=== PATIENT | female | born 1940 | race Caucasian/White ===

== ENCOUNTER 2019-03-23 12:54 | Outpatient (CLI) | payer MEDICARE, OTHER, SELFPAY ==
[2019-03-23 14:07] LABS: ALT 20 U/L (12-78); AST 19 U/L (15-37); Albumin 3.8 g/dL (3.4-5.0); Alkaline Phosphatase 61 U/L (46-116); Anion Gap 8.4 mmol/L (3-11); BUN 12 mg/dL (7-18); CO2 29.6 mmol/L (21.0-32.0); CREATININE 0.98 mg/dL (0.55-1.02); Calcium 9.6 mg/dL (8.5-10.1); Chloride 103 mmol/L (98-107); Estimated GFR 55.18 (mL/min/1.73m2); Glucose 92 mg/dL (70-100); Potassium 3.5 mmol/L (3.5-5.1); Sodium 141 mmol/L (136-145); Total Protein 7.5 g/dL (6.4-8.2)
== END 2019-03-23 13:14 ==
PROVIDERS: PCP Family Medicine; Visit Provider Family Medicine
DX: I10 Essential (primary) hypertension (principal)
CPT/HCPCS: 36415; 80053

== ENCOUNTER 2020-07-11 01:30 | Outpatient (CLI) | payer MEDICARE, OTHER, SELFPAY ==
[2020-07-11 10:13] LABS: ALT 18 U/L (14-59); AST 16 U/L (15-37); Albumin 3.8 g/dL (3.4-5.0); Alkaline Phosphatase 63 U/L (46-116); Anion Gap 8.2 mmol/L (3-11); BUN 8 mg/dL (7-18); Bilirubin, Total 0.9 mg/dL (0.2-1.0); CO2 31.8 mmol/L (21.0-32.0); CREATININE 0.57 mg/dL (0.55-1.02); Calcium 9.8 mg/dL (8.5-10.1); Chloride 97 mmol/L (98-107); Glucose 92 mg/dL (74-106); Potassium 3.8 mmol/L (3.5-5.1); Sodium 137 mmol/L (136-145); Total Protein 7.7 g/dL (6.4-8.2)
== END 2020-07-11 01:50 ==
PROVIDERS: PCP Family Medicine; Visit Provider Family Medicine
DX: I10 Essential (primary) hypertension (principal)
CPT/HCPCS: 36415; 80053

== ENCOUNTER 2022-04-23 01:09 | Outpatient (CLI) | payer MEDICARE, OTHER, SELFPAY | END 2022-04-23 01:10 | disposition home or self-care (01) | LOC: LOS 01:09 | PROVIDERS: PCP Family Medicine; Visit Provider Family Medicine ==

== ENCOUNTER 2022-07-05 02:41 | Outpatient (CLI) | payer MEDICARE, OTHER, SELFPAY ==
[2022-07-05 12:55] LABS: ALT 14 U/L (14-59); AST 28 U/L (15-37); Albumin 3.8 g/dL (3.4-5.0); Alkaline Phosphatase 64 U/L (46-116); Anion Gap 10.4 mmol/L (3-11); BUN 11 mg/dL (7-18); Bilirubin, Total 1.1 mg/dL (0.2-1.0); CO2 26.6 mmol/L (21.0-32.0); CREATININE 0.6 mg/dL (0.55-1.02); Calcium 9.2 mg/dL (8.5-10.1); Chloride 96 mmol/L (98-107); Glucose 81 mg/dL (74-106); Potassium 4.2 mmol/L (3.5-5.1); Sodium 133 mmol/L (136-145); Total Protein 7.9 g/dL (6.4-8.2)
== END 2022-07-05 02:42 | disposition home or self-care (01) ==
LOC: LOS 02:41
PROVIDERS: PCP Family Medicine; Visit Provider Family Medicine
DX: I10 Essential (primary) hypertension (principal)
CPT/HCPCS: 36415; 80053

== ENCOUNTER 2023-08-16 01:43 | Outpatient (CLI) | payer MEDICARE, SELFPAY ==
[2023-08-16 12:27] LABS: ALT 17 U/L (14-59); AST 18 U/L (15-37); Albumin 3.4 g/dL (3.4-5.0); Alkaline Phosphatase 63 U/L (46-116); Anion Gap 6.9 mmol/L (3-11); BUN 11 mg/dL (7-18); Bilirubin, Total 0.9 mg/dL (0.2-1.0); CO2 27.1 mmol/L (21.0-32.0); CREATININE 0.8 mg/dL (0.55-1.02); Calcium 9.9 mg/dL (8.5-10.1); Chloride 100 mmol/L (98-107); Estimated GFR 73.98 (mL/min/1.73m2); Glucose 98 mg/dL (74-106); Potassium 4.2 mmol/L (3.5-5.1); Sodium 134 mmol/L (136-145); Total Protein 7.4 g/dL (6.4-8.2)
== END 2023-08-16 01:44 | disposition home or self-care (01) ==
LOC: LOS 01:43
PROVIDERS: PCP Family Medicine; Visit Provider Family Medicine
DX: I10 Essential (primary) hypertension (principal)
CPT/HCPCS: 36415; 80053

== ENCOUNTER 2024-02-07 11:14 | Outpatient (CLI) | payer MEDICARE, SELFPAY ==
[2024-02-07 12:40] LABS: Anion Gap 10.5 mmol/L (3-11); BUN 10 mg/dL (7-18); CO2 29.5 mmol/L (21.0-32.0); CREATININE 0.9 mg/dL (0.55-1.02); Calcium 9.7 mg/dL (8.5-10.1); Chloride 104 mmol/L (98-107); Estimated GFR 64.23 (mL/min/1.73m2); Glucose 113 mg/dL (74-106); Potassium 3.8 mmol/L (3.5-5.1); Sodium 144 mmol/L (136-145)
== END 2024-02-07 11:15 | disposition home or self-care (01) ==
LOC: LOS 11:14
PROVIDERS: PCP Family Medicine; Visit Provider Family Medicine
DX: I10 Essential (primary) hypertension (principal)
CPT/HCPCS: 36415; 80048

== ENCOUNTER → 2024-03-01 03:42 | Outpatient (CLI) | payer MEDICARE, SELFPAY ==
--- NOTE | 2024-03-01 12:30 | DI.US_ITS ---
APPROVED REPORT EXAM: Comprehensive 2D, Doppler, and color-flow Echocardiogram Patient Location: Out-Patient Sushi Chef: Swati Asencio RDCS (AE) Indications: Edema Other Information Study Quality: Adequate. Technically limited study due to body habitus. Conclusion Normal left ventricular wall thickness and chamber size. EF is 55-60%. Wall motion is normal Normal right ventricular size and function Both atria are normal in size Mildly sclerotic trileaflet aortic valve without stenosis or regurgitation. There are no additional valvular abnormalities Wall motion Left Ventricle The left ventricle is normal size. The left ventricular systolic function is normal. The left ventric ular ejection fraction is within the normal range. There is normal left ventricular wall thickness. T here is normal LV segmental wall motion. There is no ventricular septal defect visualized. LVEF is 55 -60%. Right Ventricle The right ventricle is normal size. The right ventricular systolic function is normal. Atria The left atrium size is normal. The right atrium size is normal. The interatrial septum is intact wit h no evidence for an atrial septal defect. Aortic Valve The Aortic valve is mildly sclerotic. Aortic valve is trileaflet. There is no aortic valvular stenosi s. No aortic regurgitation is present. Mitral Valve The mitral valve is normal in structure. No evidence of mitral valve stenosis. Trace to mild mitral r egurgitation. Tricuspid Valve The tricuspid valve is normal in structure. There is no tricuspid valve stenosis. Trace tricuspid reg urgitation. Unable to assess PA pressure. Pulmonic Valve The pulmonary valve is normal in structure. There is no pulmonic valvular stenosis. There is no pulmo hanna valvular regurgitation. Great Vessels The aortic root is normal in size. The ascending aorta is normal in size. Aortic arch is not well vis ualized. IVC is normal in size and collapses >50% with inspiration. Pericardium There is no pericardial effusion. 2D Dimensions IVSD d PLAX 0.77 cm F: 0.6-1.0 Ao Root d 3.18 cm F: 2.7 - 3.3 LVPW d PLAX 0.79 cm F: 0.6 - 1.0 Ao Asc Diam d 3.11 cm F: 2.3 - 3.1 LVID d PLAX 3.76 cm F: 3.8 - 5.2 LVDs 2.68 cm F: 2.2 - 3.5 LV EF Teichholz 55.9 % FS 28.58 % LV EDV (Teich) 60.3 mL LV ESV (Teich) 26.6 mL M-Mode TAPSE 1.92 cm (M/F) >1.7 Auto EF LV EDV A4C 63.9 mL LV EDV A2C 66.3 mL LV EDV BP 66.6 mL LV ESV A4C 28.8 mL LV ESV A2C 30.0 mL LV ESV BP 30.6 mL LVEF(%) A4C 54.9 % LVEF(%) A2C 54.7 % LVEF(%) BP 54.0 % LV SV A4C 35.1 ml LV SV A2C 36.3 ml LV SV BP 36.0 ml LV CO A4C 3.3 L/min LV CO A2C 3.4 L/min LV CO BP 3.4 L/min HR A4C 94.00 BPM HR A2C 94.25 BPM LV EDV Index (BP) LA Volume LA Length A4C 4.5 cm LA Length A2C 4.7 cm LA Area A4C s 13.47 cm2 LA Area A2C s 14.64 cm2 LA Vol A4C A-L 33.94 mL LA Vol A2C A-L 38.44 mL LA Vol Biplane A-L 36.9 mL LA Vol/BSA A4C A-L LA Vol/BSA A2C A-L LA Vol/BSA BP A-L 27.1 mL/m2 LA Vol A4C MOD 31.8 mL LA Vol A2C MOD 35.7 mL LA Vol BP MOD 34.0 mL RA Volume RA Area A4C 11.3 cm2 RA ESV A4C (A-L) 28.3mL RA Vol/BSA A4C A-L RA Length A4C 3.8 cm RA ESV A4C (MOD) 27.3mL LV Diastology MV E' medial 0.080 (>0.07 m/s) MV E Vmax 1.03 (0.4-1.3 m/s) MV E/E' MED 12.88 (<14) MV A Vmax 1.10 (0.4-1.3 m/s) MV E' lateral 0.103 (>0.1 m/s) E/A Ratio 0.9 MV E/E' LAT 10.08 (<14) MV E' Average 0.091 m/s MV E/E'(average) 11.31 Aortic Valve AoV Vmax 1.36 m/s LVOT Vmax 1.02 m/s AoV Peak Grad 7.4 mmHg LVOT Peak Grad 4.1 mmHg AoV Area (Vmax) 2.17 cm2 LVOT VTI 0.217 m AoV VTI 0.291 m LVOT Mean Grad 2.3 mmHg AoV Mean Sharath. 0.92 m/s LVOT SV 62.96 mL AoV Mean Grad 3.9 mmHg LVOT Diam s 1.90 cm AoV Area (VTI) 2.16 cm2 Velocity Ratio 0.75 Mitral Valve MV DT 160 (160-240 msec) MV Vmax TIPS 1.13 m/s MV Mean Grad 2.9 (<2mmHg) MV VTI 0.220 m Pulmonary Valve PV Vmax 1.17 (0.5-1.5 m/s) RVOT Vmax 1.06 m/s PV Peak Grad 5.5 mmHg RVOT Peak Gr. 4.5 mmHg PV Mean Sharath 0.84 m/s RVOT VTI 0.205 m PV Mean Grad 3.2 mmHg RVOT Mean Gr. 2.4 mmHg Tricuspid Valve TV S' 0.18 m/s
== END ==
PROVIDERS: PCP Family Medicine; Visit Provider Family Medicine
DX: R60.9 Edema, unspecified (principal)
CPT/HCPCS: 93306

== ENCOUNTER 2024-09-20 11:21 | Outpatient (CLI) | payer MEDICARE, SELFPAY ==
--- NOTE | 2024-09-20 11:15 | RT.EKG_ITS ---
APPROVED REPORT Exam: Resting ECG Reason for Exam: Tachycardia Patient Location: O HR:105 bpm ECG Measurements Heart Rate 105 AXIS DC 167 P 65 QRSd 78 QRS -20 QT 327 T 52 QTc 433 Conclusion Sinus tachycardia...rate> 99 Borderline left axis deviation...QRS axis (-15,-29)
== END 2024-09-20 11:22 | disposition home or self-care (01) ==
LOC: DI.CM 11:21
PROVIDERS: PCP Family Medicine; Visit Provider Family Medicine
DX: R00.0 Tachycardia, unspecified (principal)
CPT/HCPCS: 93010

== ENCOUNTER 2025-03-28 01:58 | Outpatient (CLI) | payer MEDICARE, SELFPAY ==
[2025-03-28 12:27] LABS: HCT 35.4 % (36.0-46.0); HGB 12.2 g/dL (11.2-15.7); MCH 36.9 pg (27.0-33.0); MCHC 34.5 % (32.0-36.0); MPV 10.1 fL (8.0-11.0); RBC 3.31 10^6/uL (3.93-5.22); RDW 12.9 % (11.7-14.6); RDW-SD 51.1 fL; WBC 5.27 10^3/uL (4.4-10.8)
[2025-03-28 12:50] LABS: ALT 19 U/L (14-59); AST 29 U/L (15-37); Albumin 3.7 g/dL (3.4-5.0); Alkaline Phosphatase 68 U/L (46-116); Anion Gap 9.5 mmol/L (3-11); BUN 10 mg/dL (7-18); CO2 28.5 mmol/L (21.0-32.0); CREATININE 0.7 mg/dL (0.55-1.02); Calcium 9.9 mg/dL (8.5-10.1); Chloride 102 mmol/L (98-107); Glucose 82 mg/dL (74-106); Potassium 4.1 mmol/L (3.5-5.1); Sodium 140 mmol/L (136-145); TSH (W/Ref FT4) 1.86 uIU/mL (0.36-3.74)
[2025-03-28 12:52] LABS: MCV 107 fL (80-95)
[2025-03-28 12:53] LABS: Platelet Count 252 10^3/uL (130-400)
[2025-03-28 19:38] LABS: Lab Add On Test DONE
[2025-03-28 20:12] LABS: Vitamin B12 213 pg/mL (193-986)
== END 2025-03-28 01:59 | disposition home or self-care (01) ==
LOC: LOS 01:58
PROVIDERS: PCP Family Medicine; Visit Provider Family Medicine
DX: R00.0 Tachycardia, unspecified (principal); E03.9 Hypothyroidism, unspecified; I10 Essential (primary) hypertension; R71.8 Other abnormality of red blood cells
CPT/HCPCS: 36415; 80053; 85027; 82607; 84443

== ENCOUNTER 2025-08-26 02:35 | Outpatient (CLI) | payer MEDICARE, SELFPAY ==
--- NOTE | 2025-08-26 10:45 | DI.US_ITS ---
Exam(s) US BREAST RT COMPLETE MAMMO DIAGNOSTIC BI EXAM: MAMMO DIAGNOSTIC BI and U/S breast RT complete CLINICAL HISTORY: breast lump rt breast, N63.15. TECHNIQUE: Craniocaudal and mediolateral oblique Full Field Digital Mammography views with Computer Aided Diagnosis followed by Tomosynthesis and right breast ultrasound. A complete right breast ultrasound was performed with evaluation of all 4 quadrants, the retroareolar region and the right axilla. COMPARISON: Comparison is made with prior examinations. FINDINGS: Mammography/Tomosynthesis: Masses/Architectural Distortion: There is a new 2 cm mass in the upper outer quadrant of the right breast. There are so seated microcalcifications. There are biopsy clip seen in both breasts. There are not associated with the new mass. Microcalcifictions: No suspicious pleomorphic-type are seen. There are benign type calcifications seen in both breasts. Skin Thickening/Nipple Retraction: None. Complete right breast US: Echotexture: Normal appearance of the glandular tissue. Shadowing: No suspicious foci. Cyst: None. Solid lesions: There is a 1.8 x 1.4 cm hypoechoic spiculated mass at the 9 to 10 o'clock position of the right breast 3 cm from the nipple. This corresponds to the mammographic abnormality. There are echogenic foci seen internally consistent with calcification. There is an area of decreased echogenicity at the luna o'clock position of the right breast 2 cm from the nipple which appears represent fibroglandular tissue. There are sonographically benign type lymph nodes in the right axilla. The largest measures 2 cm. Ductal dilation: None. IMPRESSION: 1. New 1.8 x 1.4 cm mass in the right breast. 2. The findings are concerning for neoplasm. Biopsy is recommended. 3. The findings were discussed with the patient on the date of the examination. BI-RADS Category 5 - Highly Suggestive of Malignancy: Biopsy recommended Breast Density - Category C - The breast are heterogeneously dense, which may obscure small masses. Breast density Category C or D implies that the patient has dense breast tissue. Dense breast tissue can make it harder to find cancer on a mammogram. Dense breast tissue is also associated with an increased risk of breast cancer. This information about the result of the mammogram report was provided to the patient to raise their awareness. Use this report when you speak with the patient about their risks for breast cancer, which includes their family history. At that time, you may recommend additional screening tests (Ultrasound or MRI) as these tests may add significant information. A negative radiographic report should not delay biopsy if a dominant or clinically suspicious mass is present. Up to ten percent of cancers are not identified on mammography. A negative report may reinforce clinical impression. Adenosis and dense breasts may obscure an underlying neoplasm. False positive reports average 6 to 10%. Patient will receive a letter notifying them of these results.
== END 2025-08-26 02:55 ==
LOC: DI 02:35
PROVIDERS: PCP Family Medicine; Visit Provider Nurse Practitioner Family
DX: Z12.31 Encounter for screening mammogram for malignant neoplasm of breast (principal); N63.15 Unspecified lump in the right breast, overlapping quadrants; N63.11 Unspecified lump in the right breast, upper outer quadrant
CPT/HCPCS: 76642; 77062; 77066; G0279

== ENCOUNTER 2025-08-29 09:16 | Outpatient (CLI) | payer MEDICARE, SELFPAY ==
--- NOTE | 2025-08-29 10:50 | DI.MAMMO_ITS ---
Exam(s) MAMMO DIAGNOSTIC UNI EXAM: MAMMO DIAGNOSTIC UNI CLINICAL HISTORY: post biopsy mammogram, rt breast mass, N63.10. TECHNIQUE: Craniocaudal and mediolateral Full Field Digital Mammography views of the right breast with Computer Aided Diagnosis were obtained post-biopsy to evaluate the position of the biopsy marker. COMPARISON: No exams were available for comparison FINDINGS: Mammography/Tomosynthesis: 85-year old female. Post Ultrasound-guided core needle biopsy of the right breast.There is again seen a mass in the upper outer quadrant of the right breast. A biopsy marker is not identified in the right breast. There is no marker is located at the expected site of the recent biopsy. No evidence of immediate complication such as hematoma, skin thickening or pneumothorax. IMPRESSION: 1. There is no biopsy marker identified in the right breast at the expected site of the recent biopsy. 2. No acute post-procedural complications. 3. Recommend routine follow-up per standard practice and correlation with pathology results. 4. The findings were discussed with Dr. Taylor on 08/29/2025. BI-RADS Category 0 - Incomplete: Need additional imaging evaluation Breast Density - Category C - The breast are heterogeneously dense, which may obscure small masses. Breast density Category C or D implies that the patient has dense breast tissue. Dense breast tissue can make it harder to find cancer on a mammogram. Dense breast tissue is also associated with an increased risk of breast cancer. This information about the result of the mammogram report was provided to the patient to raise their awareness. Use this report when you speak with the patient about their risks for breast cancer, which includes their family history. At that time, you may recommend additional screening tests (Ultrasound or MRI) as these tests may add significant information. A negative radiographic report should not delay biopsy if a dominant or clinically suspicious mass is present. Up to ten percent of cancers are not identified on mammography. A negative report may reinforce clinical impression. Adenosis and dense breasts may obscure an underlying neoplasm. False positive reports average 6 to 10%. Patient will receive a letter notifying them of these results.
== END 2025-08-29 09:36 ==
LOC: DI 09:17
PROVIDERS: PCP Family Medicine; Visit Provider Surgery
DX: C50.811 Malignant neoplasm of overlapping sites of right female breast (principal)
CPT/HCPCS: 19083; 76642; 77061; 77065; G0279

== ENCOUNTER 2025-08-29 09:35 | Outpatient (REF) | payer MEDICARE, SELFPAY ==
--- NOTE | 2025-08-29 09:40 | BREAST_PTH ---
PATIENT: Nicole Renee LOC: [facility] U#:[id number] AGE/SX: 85/F ROOM: RE08/29/[address]: Wendy Taylor MD : 1940 BED: DIS: 08/29/2025 SPEC #: [id number] RECD: 08/29/25 12:37 STATUS: RAMEZ REQ #: [id number] WILIAN: 08/29/25 09:[address]: Wendy Taylor DEPT: Surgical Specimen RECD BY: Brenda Will ENTERED: 08/29/25 12:38 SP TYPE: Breast OTHR DR: Nicole Hendrix MD, DC Tissues: 1 - BREAST BX NEEDLE Procedures: GROSS AND MICRO LEVEL 4 [id number] IPEX ESTROGEN/PROGESTERONE RECEPTOR IPEX STAIN Comments: [id number]
== END 2025-08-29 09:36 | disposition home or self-care (01) ==
LOC: LBN 09:35
PROVIDERS: PCP Family Medicine; Referring Provider Surgery; Visit Provider Surgery
DX: C50.911 Malignant neoplasm of unspecified site of right female breast (principal)
CPT/HCPCS: 88305; 88360

== ENCOUNTER → 2025-09-13 14:31 | Outpatient (BNVA) | payer MEDICARE, SELFPAY | PROVIDERS: PCP Family Medicine; Referring Provider Family Medicine; Visit Provider Surgery | DX: C50.211 Malignant neoplasm of upper-inner quadrant of right female breast (principal); R59.0 Localized enlarged lymph nodes | CPT/HCPCS: 10005; 19283 ==

== ENCOUNTER 2025-09-13 14:39 | Outpatient (REF) | payer MEDICARE, SELFPAY ==
--- NOTE | 2025-09-13 15:25 | PAPNONF_PTH ---
PATIENT: Nicole Renee LOC: [facility] U#:[id number] AGE/SX: 85/F ROOM: RE09/13/[address]: Wendy Taylor MD : 1940 BED: DIS: 09/13/2025 SPEC #: [id number] RECD: 09/13/25 16:20 STATUS: RAMEZ REKe #: [id number] WILIAN: 09/13/25 15:[address]: Wendy Taylor DEPT: [facility] Cytology RECD BY: Brenda Will ENTERED: 09/13/25 16:21 SP TYPE: PAPALESSIAF ANALI DR: Nicole Hendrix MD, DC Tissues: 1 - BODY FLUID CYTO-FINE NEEDLE ASPIRATE-[facility] Procedures: BODY FLUID CYTO-FINE NEEDLE ASPIRATE-[facility] Comments: [id number] (REFRIGERATED)
== END 2025-09-13 14:40 | disposition home or self-care (01) ==
LOC: LBN 14:39
PROVIDERS: PCP Family Medicine; Visit Provider Surgery
DX: C50.911 Malignant neoplasm of unspecified site of right female breast (principal); R59.0 Localized enlarged lymph nodes
CPT/HCPCS: 88104

== ENCOUNTER → 2025-10-02 01:12 | Outpatient (CLI) | payer MEDICARE, SELFPAY ==
--- NOTE | 2025-10-02 06:30 | DI.NM_ITS ---
Exam(s) NM BONE SCAN WHOLE BODY GRP EXAM: NM BONE SCAN WHOLE BODY GRP CLINICAL HISTORY: rt breast ca, eval for metastasis. TECHNIQUE: Injected Dose: 25 mCi Tc-99m MDP Delayed Images: 2-3 hours. COMPARISON: CR FACIAL BONES LIMITED from 11/10/[address] CHEST/ABD/PEL W from 10/02/2025 FINDINGS: Symmetric axial uptake. Bilateral renal excretion is identified. No focal area of intense suspicious uptake is seen. Increased activity in the cerebral spine. There is scoliosis at the upper thoracic spine. There is some increased activity at the right sternoclavicular joint. Degenerative changes with spurring is noted on a the CT examination. IMPRESSION: 1. No definite evidence of metastatic disease. 2. There is generalized increased activity in the cervical spine. Is could be secondary to degenerative changes. Plain films are recommended for further evaluation. DATA REPOSITORY:
--- NOTE | 2025-10-02 06:30 | DI.CT_ITS ---
Exam(s) CT CHEST/ABD/PEL W EXAM: CT CHEST/ABD/PEL W CLINICAL HISTORY: RT BREAST CA,EVALUATE FOR METASTASIS. TECHNIQUE: Imaging Protocol: Axial computed tomography images with coronal and sagittal reformatted images were created and reviewed. Computer aided detection (CAD) was utilized. CONTRAST MATERIAL: Intravenous: Omnipaque 350 Contrast volume:73 ml Oral: yes COMPARISON: No exams were available for comparison FINDINGS: CHEST: Pulmonary parenchyma: No consolidation. No dominant measurable mass. Tracheobronchial tree: No bronchiectasis. No mucous plugging.No bronchial wall thickening. Pleura: No effusion or pneumothorax. Mediastinum: Within normal limits. Pulmonary arteries: No visible emboli. Cardiovascular: Heart size is normal. No coronary artery calcifications are present. No pericardial effusion. Thoracic aorta non-dilated. Bones: Mild scoliosis. No lytic or blastic lesions. No compression fractures. Bones appear osteoporotic. Soft tissues: Mass in the right breast, consistent with patient's known malignancy. No axillary lymph nodes are identified. ABDOMEN and PELVIS: Liver: Normal density. No suspicious mass. Gallbladder and biliary tract: No evidence of stones or wall thickening. No biliary dilatation. Pancreas: Normal density, no abnormal calcifications or inflammatory process. Spleen: Normal. Kidneys: Normal size, contour and axis. No radiodense stones. No obstructive uropathy. No suspicious masses seen. Adrenal glands: No masses seen. Aorta: Abdominal portion non-dilated. Lymph nodes: Within normal limits. Soft tissues: Unremarkable. Bladder: Unremarkable. Bowel: Diverticulosis of the descending and sigmoid colon. Normal quantity of stool. Appendix normal. No obstruction or bowel wall thickening. Peritoneal cavity: No ascites. No focal collection. No mesenteric inflammatory response. No free air. Bones: No lytic or blastic lesions. Bones appear osteoporotic. Reproductive organs: Unremarkable for age. IMPRESSION: No evidence of metastatic disease in the chest, abdomen or pelvis. Right breast mass. RADIATION DOSE DELIVERED: 399.94mGy.cm Total DLP DATA REPOSITORY: All CT scans at this facility are submitted to the National Radiology Data Registry (NRDR) Dose Index Registry (DIR) with the [employer] (A[employer]). RADIATION OPTIMIZATION: All CT scans at this facility use at least one of these dose optimization techniques: automated exposure control; mA and/or kV adjustment per patient size (includes targeted exams where dose is matched to clinical indication); or iterative reconstruction.
[2025-10-02] MEDS: Barium Sulfate 2% W/V-Creamy Vanilla Smoothie 450 ML BTL PO (07:14)
[2025-10-02] MEDS: Barium Sulfate 2% W/V-Berry Smoothie 450 ML BTL PO (07:14)
[2025-10-02] MEDS: Omnipaque 350 MG/ML 100 ML BTL IJ (09:39)
[2025-10-02] MEDS: Normal Saline - Diluent 50 ML VIAL IJ (09:39)
[2025-10-02] MEDS: Normal Saline Flush 10 ML SYR IVP (09:40)
== END ==
PROVIDERS: PCP Family Medicine; Visit Provider Surgery
DX: C50.911 Malignant neoplasm of unspecified site of right female breast (principal); C50.919 Malignant neoplasm of unspecified site of unspecified female breast; Z17.421 Hormone receptor negative with human epidermal growth factor receptor 2 negative status; R59.0 Localized enlarged lymph nodes
CPT/HCPCS: 74177; 78306; 71260; 82565; J3490

== ENCOUNTER 2025-11-08 13:15 | Outpatient (CLI) | payer MEDICARE, SELFPAY ==
[2025-11-08 11:59] LABS: Abs Immature Grans 0.03 10^3/uL (0.0-0.06); HCT 34.8 % (36.0-46.0); HGB 12.0 g/dL (11.2-15.7); Immature Grans % 0.4 %; MCH 33.4 pg (27.0-33.0); MCHC 34.5 % (32.0-36.0); MCV 97 fL (80-95); MPV 9.3 fL (8.0-11.0); Platelet Count 262 10^3/uL (130-400); RBC 3.59 10^6/uL (3.93-5.22); RDW 12.1 % (11.7-14.6); RDW-SD 43.5 fL; WBC 6.84 10^3/uL (4.4-10.8)
[2025-11-08 12:17] LABS: ALT 13 U/L (10-49); AST 33 U/L (<34); Albumin 4.4 g/dL (3.2-5.0); Alkaline Phosphatase 63 U/L (46-116); Anion Gap 11.6 mmol/L (3-11); BUN 10 mg/dL (9-23); Bilirubin, Total 0.9 mg/dL (0.2-1.2); CO2 26.1 mmol/L (20.0-31.0); Calcium 9.8 mg/dL (8.3-10.6); Chloride 94 mmol/L (98-107); Glucose 106 mg/dL (74-106); Potassium 3.9 mmol/L (3.5-5.1); Sodium 132 mmol/L (136-145); Total Protein 8.1 g/dL (5.7-8.2)
== END 2025-11-08 13:16 | disposition home or self-care (01) ==
LOC: LBO 13:16
PROVIDERS: PCP Family Medicine; Visit Provider Internal Medicine Hematology & Oncology
DX: C50.411 Malignant neoplasm of upper-outer quadrant of right female breast (principal); Z17.1 Estrogen receptor negative status [ER-]
CPT/HCPCS: 36415; 80053; 85025